=== PATIENT | male | born 1960 | race Caucasian/White ===

== ENCOUNTER → 2018-03-26 | Day surgery (SDC) | payer OTHER ==
[~2018-03-26] MED LIST: ASPI81TA50 PO; DICY20TA3 PO; GABA300C18 PO; IV RINGERS,LACTATED 1000ML 1,000 ML IV SCH; LEVO75TA PO; LIDOCAINE 1% PF 2 ML VIAL. ONE; LISI-130 PO; OMEP20TA63 PO; PROPOFOL 40 ML IV ONE
[2018-03-26 16:43] VITALS: BP 110/68
--- NOTE | 2018-03-28 15:10 | PATHOLOGY ---
[facility] Accession Number: [id number] . 01 Material submitted: . DISTAL ESOPHAGUS BIOPSY . 01 Clinical history: . Hx Nolan's . 02 Diagnosis: Esophageal biopsies, distal esophagus: - Segments of hyperplastic squamous esophageal mucosa and esophagogastric mucosa showing chronic inflammation, consistent with reflux esophagitis. (JPM:delio; 03/28/2018) QMS/03/28/2018 . 02 Comment: Sections of the distal esophageal biopsy reveal several segments of focally tangentially oriented hyperplastic squamous esophageal mucosa and a segment of esophagogastric mucosa showing mild to moderate chronic inflammation. The findings are consistent with reflux esophagitis. There is no evidence of Nolan change, dysplasia, or malignancy. (JPM:delio; 03/28/2018) . 02 Electronically signed: . Az Mcdowell MD, Pathologist NPI- [id number] . 01 Gross description: . Received in formalin labeled ""Clifton Jones, distal esophagus BX," are 5 segments of geronimo soft tissue measuring 1.1 x 0.9 x 0.2 cm in aggregate dimensions and ranging from 0.3 to 0.5 cm in maximum dimension. The specimen is submitted entirely in cassette A1. (TSD; 03/27/2018) TOB/TOB . 02 Pathologist provided ICD-10: K21.0 . 02 CPT . 965725 Specimen Comment: A courtesy copy of this report has been sent to Specimen Comment: [phone], . Specimen Comment: Report sent to and Performed at: [address], [place], [place] [id number] MD Marc Stafford MD Phone: [phone] Performed at: 02 [facility] [address] [place], [place] [id number] MD Az Mcdowell MD Phone: [phone]
== END | disposition home or self-care (01) ==
LOC: SURG 15:16
PROVIDERS: ATTEND Internal Medicine Gastroenterology
DX: K22.70 Barrett's esophagus without dysplasia (principal); Z88.0 Allergy status to penicillin; Z88.2 Allergy status to sulfonamides; K21.9 Gastro-esophageal reflux disease without esophagitis; I10 Essential (primary) hypertension; E03.9 Hypothyroidism, unspecified; Z85.828 Personal history of other malignant neoplasm of skin; G47.30 Sleep apnea, unspecified; Z83.3 Family history of diabetes mellitus; M19.90 Unspecified osteoarthritis, unspecified site; Z82.49 Family history of ischemic heart disease and other diseases of the circulatory system; Z82.3 Family history of stroke; Z72.89 Other problems related to lifestyle; Z72.0 Tobacco use; Z79.899 Other long term (current) drug therapy; Z98.52 Vasectomy status
CPT/HCPCS: 43239; J2704; 88305